=== PATIENT | female | born 1955 | race Caucasian/White ===

== ENCOUNTER 2016-07-26 06:57 | Emergency (ER) | payer OTHER ==
--- NOTE | ~2016-07-26 | CR173 ---
[facility] A Service [facility] RADIOLOGY TEXT RESULTS PATIENT: AURELIA BURKETT LOCATION: SED : 55 UNIT #: [id number] AGE: [address]: Sofia Morgan MD SEX: F ORDER DR: [id number] [address] [address] [id number] E MR#: [id number] #: [id number] NAME: AURELIA BURKETT : 1955 SEX: F STUDY DATE/TIME: 07/26/2016 7:27 UNIT: SED ROOM: STUDY DESCRIPTION: CR Knee 3 Views Rt Attending Physician: Sofia Morgan M.D. Ordering Physician: Sofia Mrogan M.D. Primary Care Physician: No Primary Care Physician MEDICAL IMAGING REPORT This report is preliminary unless electronic signature is present. EXAM Right knee, 07/26/2016. INDICATION Fall Tuesday morning and injured knee with pain in knee since then. The patient has had multiple knee surgeries. COMPARISON 08/05/2015. FINDINGS An AP and lateral and sunrise view of the right knee were obtained. There is a right total knee prosthesis present. This is unchanged in appearance from the prior study. There is no fracture visible. IMPRESSION Previous right knee replacement. There are extensive postoperative changes and posttraumatic changes involving the bones of the knee that are all stable from 11/05/2015. There is no evidence of acute injury. There is no effusion . Dictated by... Deric Virgen M.D. THIS IS AN ELECTRONICALLY VERIFIED REPORT Deric Virgen M.D. at 07/26/2016 2:19 PM FEL/gz TD: 07/26/2016 11:53 JOB #: [id number] [facility] A Service [facility] RADIOLOGY TEXT RESULTS PATIENT: AURELIA BURKETT LOCATION: SED : 55 UNIT #: [id number] AGE: [address]: Sofia Morgan MD SEX: F ORDER DR: MEDICAL IMAGING REPORT Page 1 of 1
--- NOTE | ~2016-07-26 | CR230 ---
[facility]. [facility] A Service of [facility] & [facility] RADIOLOGY TEXT RESULTS PATIENT: AURELIA BURKETT LOCATION: SED : 55 UNIT #: [id number] AGE: [address]: Sofia Morgan MD SEX: F ORDER DR: [id number] [place] [id number] E MR#: [id number] Acc #: [id number] NAME: AURELIA BURKETT : 1955 SEX: F STUDY DATE/TIME: 07/26/2016 7:27 UNIT: SED ROOM: STUDY DESCRIPTION: CR Shoulder Min 2 View Rt Attending Physician: Sofia Morgan M.D. Ordering Physician: Sofia Morgan M.D. Primary Care Physician: No Primary Care Physician MEDICAL IMAGING REPORT This report is preliminary unless electronic signature is present. EXAM Right shoulder. HISTORY Right shoulder pain after falling 2 days ago. FINDINGS 3 views of the right shoulder were obtained. There is no fracture identified. There is minimal degenerative change at the insertion of the rotator cuff tendons on the humerus. IMPRESSION No evidence of acute injury. Mild degenerative changes. Dictated by... Deric Virgen M.D. THIS IS AN ELECTRONICALLY VERIFIED REPORT Deric Virgen M.D. at 07/26/2016 2:19 PM PATRICIA/mukul TD: 07/26/2016 11:50 JOB #: [id number] MEDICAL IMAGING REPORT Page 1 of 1
[~2016-07-26 06:57] MED LIST: ALPRAZOLAM; ASPIRIN PO; ATARAX PO; ATIVAN PO; CHOLESTEROL PILL; FISH OIL 1,0001 CA2 PO; GABAPENTIN400 M2; HYDROCODON-ACE1 EAC5 PO; HYDROCODONE-A1 UDTA2; KLONOPIN PO; LASIX; LISINOPRIL PO; LOPRESSOR PO; LORTAB 7.5-5001 TAB PO; MACROBID100 M1 PO; MOBIC PO; PERCOCET PO; PHENERGAN PO; PRILOSEC20 M1 PO; PYRIDIUM100 MG PO; VOLTAREN75 MG PO; WELLBUTRIN; ZOCOR20 MG PO; ZOFRAN ODT4 MG PO; [UNRECOGNIZED DRUG - OTHER] TOP; [UNRECOGNIZED DRUG - REMARK]
[2016-07-26] MEDS ORDERED: ATORVASTATIN CA10 MG PO (07:11)
[2016-07-26] MEDS ORDERED: VOLTAREN75 MG (07:12)
[2016-07-26] MEDS ORDERED: GABAPENTIN800 MG PO (07:13)
[2016-07-26] MEDS ORDERED: ZESTORETIC 20-1 EAC1 (07:13)
[2016-07-26] MEDS ORDERED: HYDROCODON-ACE1 EA11 (07:13)
[2016-07-26] MEDS ORDERED: NITROGLYGERIN0.4 MG (07:14)
[2016-07-26] MEDS ORDERED: VITAMIN D 22000 UNIT PO (07:14)
[2016-07-26] MEDS ORDERED: HEARTBURN RELI150 M1 PO (07:14)
[2016-07-26] MEDS ORDERED: ZANAFLEX (07:14)
== END 2016-07-26 09:03 | disposition home or self-care (01) ==
LOC: SED 06:57
DX: M62.838 Other muscle spasm (principal); I10 Essential (primary) hypertension; G43.909 Migraine, unspecified, not intractable, without status migrainosus; G89.29 Other chronic pain; W01.0XXA Fall on same level from slipping, tripping and stumbling without subsequent striking against object, initial encounter; Y92.009 Unspecified place in unspecified non-institutional (private) residence as the place of occurrence of the external cause
CPT/HCPCS: 73030; 73562; 96372; 99284; J1885